=== PATIENT | male | born 1975 | race Caucasian/White ===

== ENCOUNTER 2020-06-29 20:20 | Inpatient (IN) | payer MEDICAID, SELFPAY ==
[~2020-06-29] VITALS: Ht 180.3 cm; Wt 61.0 kg
[2020-06-29] MEDS ORDERED: LORazepam 2 MG/ML, 1ML IVPush ONE (20:30)
[2020-06-29] MEDS: PLEASE ENTER ALLERGIES MC SCH ×2 (20:30→20:43)
[2020-06-29] MEDS ORDERED: SODIUM CHLORIDE 0.9% 1,000ML IVBOLUS ONE ×2 (20:30→21:30)
--- NOTE | 2020-06-29 20:30 | NUR ---
PATIENT ARRIVING RESTLESS, FIDGETY AND ANXIOUS. UNABLE TO STAY STILL FOR MORE THAN BRIEF MOMENTS. REDIRECTED AND CUES USED VERY FREQUENTLY. PATIENT REPEATS REQUEST FOR WATER. DR. TOBIAS TO BEDSIDE TO EVALUATE PATIENT. PATIENT STATES HE JUST WENT THROUGH A BREAKUP AND HIS EX-BOYFRIEND SENT SOMEONE TO BREAK HIS LEG AND HIS LEG HURTS WELL ETOH WITHDRAWLS AND CP. CALL VASQUEZ IN REACH. SAFETY MAINTAINED. WILL CONTINUE TO MONITOR. SEIZURE PADS APPLIED TO BILATERAL SIDE RAILS
[2020-06-29] MEDS ORDERED: LORazepam 2 MG/ML, 1ML ONE (20:38)
[2020-06-29 21:07] LABS: PH, VENOUS 7.302 pH (7.320-7.420)
--- NOTE | 2020-06-29 21:10 | NUR ---
DR. TOBIAS NOTIFIED OF POC BLOOD SUGAR TAKEN AND RESULTED "HI"
[2020-06-29 21:15] LABS: BASOPHILS % (AUTO) 0 % (0-1); EOSINOPHILS % (AUTO) 0 % (1-7); LYMPHOCYTES % (AUTO) 15 % (22-44); MEAN CORPUSCULAR HEMOGLOBIN 28.5 pg (27.5-34.5); MEAN CORPUSCULAR HGB CONC 32.1 g/dL (33.2-36.2); MEAN PLATELET VOLUME 8.4 fL (7.4-10.4); MONOCYTES % (AUTO) 9 % (2-9); NEUTROPHILS % (AUTO) 76 % (42-75); PLATELET COUNT 280 x10^3/uL (130-400); RED BLOOD COUNT 3.99 x10^6/uL (4.38-5.82)
[2020-06-29 21:18] LABS: MD NO
[2020-06-29 21:20] LABS: ALANINE AMINOTRANSFERASE 61 U/L (12-78); ALBUMIN 2.8 g/dL (3.4-5.0); ANION GAP 14 mmol/L (5-15); CALCIUM 7.7 mg/dL (8.5-10.1); CHLORIDE 96 mmol/L (98-107); CREATININE 1.11 mg/dL (0.7-1.3)
[2020-06-29 21:24] LABS: ACETONE, SERUM Trace (Negative); ALKALINE PHOSPHATASE 418 U/L (45-117); BILIRUBIN,TOTAL 0.3 mg/dL (0.2-1.0); TOTAL PROTEIN 6.9 g/dL (6.4-8.2); TROPONIN I < 0.015 ng/mL (0.000-0.045)
[2020-06-29] MEDS ORDERED: METH10TA3 PO (21:31)
--- NOTE | 2020-06-29 21:43 | NUR ---
PATIENT STANDING UP ON SIDE OF BED TO USE URINAL. UNSTEADY STANDING. RN STAYED AT BEDSIDE TO ENSURE NO FALLS.
[2020-06-29 22:03] LABS: MICROSCOPIC NOT IND
[2020-06-29 22:14] LABS: AMPHETAMINE SCREEN, URINE Negative (Negative); BARBITURATE SCREEN, URINE Negative (Negative); BENZODIAZEPINE SCREEN, URINE Negative (Negative); CANNABINOID SCREEN, URINE Positive (Negative); COCAINE SCREEN, URINE Negative (Negative); METHADONE SCREEN, URINE Positive (Negative); OPIATE SCREEN, URINE Negative (Negative)
--- NOTE | 2020-06-29 22:32 | NUR ---
PAIENT RESTING IN BED INTERMITTENTLY SLEEPING. IVF FINISHED AND BS RECHECKED = 400. PATIENT WOKE UP AND STATED "IM STILL PRETTY ANXIOUS". DRIFTED BACK TO SLEEP WITH EYES CLOSED. VS REMAIN STABLE ON 2L VIA NC. FOUND NC OFF PATIENT AND HE WS 90-91% ON RA. THIS WAS REAPPLIED
--- NOTE | 2020-06-29 22:47 | NUR ---
BANANA BAG REQUESTED FROM PHARMACY
--- NOTE | 2020-06-29 22:52 | NUR ---
DISCUSSION WITH DR. NAIDU; HE IS SUGGESTING PATIENT IS NOT NEEDING ICU AT THIS TIME. HE WILL PLACE ORDERS FOR SUCH. I NOTIFIED HIM OF SIGNIFICANT DROP IN BS AND CIWA SCALE ASSESSMENTS.
[2020-06-29] MEDS ORDERED: MAGNESIUM SULFATE 1 GM, THIAMINE 100 MG, FOLIC ACID 1 MG in SODIUM CHLORIDE 0.9% 1,000 ML IV ONE (23:00)
[2020-06-29] MEDS ORDERED: LORazepam 1MG TABLET PO PRN ×2 (23:30)
[2020-06-29] MEDS ORDERED: DEXTROSE 4 GM TAB.CHEW PO PRN (23:30)
[2020-06-29] MEDS ORDERED: PROMETHAZINE 25 MG/ML, 1ML IM PRN (23:30)
[2020-06-29] MEDS: ENOXAPARIN 40 MG/0.4 ML SQ SCH (23:30)
[2020-06-29] MEDS ORDERED: LORazepam 2 MG/ML, 1ML IV PRN ×5 (23:30)
[2020-06-29] MEDS ORDERED: ONDANSETRON ODT 4 MG PO PRN (23:30)
[2020-06-29] MEDS ORDERED: LORazepam 0.5MG TABLET PO PRN (23:30)
[2020-06-29] MEDS ORDERED: DOCUSATE 100 MG CAPSULE PO PRN (23:30)
[2020-06-29] MEDS ORDERED: ONDANSETRON 2MG/ML, 2ML IVPush PRN (23:30)
[2020-06-29] MEDS ORDERED: POLYETHYLENE GLYCOL 17 GM PACKET PO PRN (23:30)
[2020-06-29] MEDS ORDERED: METOCLOPRAMIDE 5 MG/ML, 2ML IVPush PRN (23:30)
[2020-06-29] MEDS ORDERED: METOCLOPRAMIDE 5 MG/ML, 2ML IVPush ONE (23:30)
[2020-06-29] MEDS ORDERED: BISACODYL 10 MG SUPP PR PRN (23:30)
[2020-06-29] MEDS ORDERED: GLUCAGON 1 MG IM PRN (23:30)
[2020-06-29] MEDS ORDERED: DEXTROSE 50%, 50ML SYRINGE IVPush PRN (23:30)
[2020-06-29] MEDS: SODIUM CHLORIDE 0.9% 1,000 ML IV SCH (23:30)
[2020-06-29] MEDS ORDERED: hydrALAzine 20 MG/ML, 1ML IVPush PRN (23:30)
--- NOTE | 2020-06-29 23:30 | NUR ---
REPORT GIVEN TO SEAMUS GRAVES ON TELE
[2020-06-29] MEDS ORDERED: INSU200I SQ-INSULIN (23:59)
[2020-06-29] MEDS ORDERED: INSU100I34 SQ-INSULIN (23:59)
[2020-06-30] MEDS: INSULIN LISPRO 100 UNITS/ML, PEN SQ-INSULIN SCH ×6 (00:24→21:50)
[2020-06-30] MEDS: INSULIN GLARGINE 100 UNITS/ML, PEN SQ-INSULIN SCH ×4 (00:24→21:51)
[2020-06-30] MEDS: LORazepam 1MG TABLET PO PRN ×6 (00:25→21:51)
[2020-06-30 00:51] LABS: ANION GAP 6 mmol/L (5-15); CHLORIDE 104 mmol/L (98-107); CREATININE 0.74 mg/dL (0.7-1.3)
[2020-06-30 01:30] VITALS: BP 153/86
[2020-06-30 04:45] LABS: BASOPHILS % (AUTO) 1 % (0-1); EOSINOPHILS % (AUTO) 0 % (1-7); LYMPHOCYTES % (AUTO) 29 % (22-44); MEAN CORPUSCULAR HEMOGLOBIN 28.8 pg (27.5-34.5); MEAN CORPUSCULAR HGB CONC 33.3 g/dL (33.2-36.2); MONOCYTES % (AUTO) 7 % (2-9); NEUTROPHILS % (AUTO) 63 % (42-75); PLATELET COUNT 265 x10^3/uL (130-400); RED BLOOD COUNT 3.84 x10^6/uL (4.38-5.82); RED CELL DISTRIBUTION WIDTH 20.2 % (9.4-14.8)
[2020-06-30 04:46] LABS: MD NO
[2020-06-30 04:57] LABS: ALANINE AMINOTRANSFERASE 53 U/L (12-78); ALBUMIN 2.6 g/dL (3.4-5.0); ANION GAP 8 mmol/L (5-15); CALCIUM 7.7 mg/dL (8.5-10.1); CHLORIDE 102 mmol/L (98-107); CHOLESTEROL, TOTAL 131 mg/dL (140-239); CREATININE 0.64 mg/dL (0.7-1.3); TRIGLYCERIDES 45 mg/dL (50-200); VLDL CHOLESTEROL 9 mg/dL (0-25)
[2020-06-30 05:05] LABS: ALKALINE PHOSPHATASE 379 U/L (45-117); BILIRUBIN,TOTAL 0.6 mg/dL (0.2-1.0); CHOL/HDL RATIO 1.9; HDL CHOL % 53 % (26-37); HDL CHOLESTEROL (DIRECT) 70 mg/dL (40-60); LDL CHOLESTEROL,CALCULATED 52 mg/dL (54-169); LDL/HDL RATIO 0.7 (0.5-3.0); TOTAL PROTEIN 6.5 g/dL (6.4-8.2)
[2020-06-30 06:29] VITALS: BP 162/87
[2020-06-30] MEDS: SODIUM CHLORIDE 0.9% 1,000 ML IV SCH (08:24)
[2020-06-30] MEDS: MULTIVITAMINS/MINERALS TABLET PO SCH (08:34)
[2020-06-30] MEDS: SODIUM CHLORIDE FLUSH 10ML SYR IVF SCH ×2 (08:34→21:35)
[2020-06-30] MEDS: METHADONE INTENSOL 10 MG/ML ORAL CONC PO SCH (09:47)
[2020-06-30 11:30] VITALS: BP 142/74
[2020-06-30] MEDS: ACETAMINOPHEN 325 MG TABLET PO PRN (14:54)
[2020-06-30 18:54] VITALS: BP 147/88
[2020-06-30] MEDS: ENOXAPARIN 40 MG/0.4 ML SQ SCH (23:16)
[2020-07-01 00:21] VITALS: BP 160/83
[2020-07-01] MEDS: LORazepam 1MG TABLET PO PRN ×4 (02:20→21:43)
[2020-07-01 07:14] VITALS: BP 110/75
[2020-07-01] MEDS: INSULIN LISPRO 100 UNITS/ML, PEN SQ-INSULIN SCH ×4 (07:52→20:00)
[2020-07-01 08:57] LABS: BASOPHILS % (AUTO) 0 % (0-1); EOSINOPHILS % (AUTO) 0 % (1-7); LYMPHOCYTES % (AUTO) 11 % (22-44); MEAN CORPUSCULAR HEMOGLOBIN 28.6 pg (27.5-34.5); MEAN CORPUSCULAR HGB CONC 32.9 g/dL (33.2-36.2); MEAN PLATELET VOLUME 8.3 fL (7.4-10.4); MONOCYTES % (AUTO) 5 % (2-9); NEUTROPHILS % (AUTO) 84 % (42-75); PLATELET COUNT 235 x10^3/uL (130-400); RED BLOOD COUNT 4.27 x10^6/uL (4.38-5.82); RED CELL DISTRIBUTION WIDTH 20.1 % (9.4-14.8)
[2020-07-01] MEDS: SODIUM CHLORIDE FLUSH 10ML SYR IVF SCH ×2 (09:00→20:00)
[2020-07-01 09:05] LABS: ALBUMIN 2.7 g/dL (3.4-5.0); ANION GAP 6 mmol/L (5-15); CALCIUM 8.5 mg/dL (8.5-10.1); CHLORIDE 97 mmol/L (98-107)
[2020-07-01 09:09] LABS: ALANINE AMINOTRANSFERASE 49 U/L (12-78); ALKALINE PHOSPHATASE 351 U/L (45-117); BILIRUBIN,TOTAL 0.7 mg/dL (0.2-1.0); CREATININE 0.71 mg/dL (0.7-1.3); TOTAL PROTEIN 6.9 g/dL (6.4-8.2)
[2020-07-01 09:56] LABS: MD SCAN
[2020-07-01] MEDS: MULTIVITAMINS/MINERALS TABLET PO SCH (09:56)
[2020-07-01] MEDS: METHADONE INTENSOL 10 MG/ML ORAL CONC PO SCH (09:56)
[2020-07-01 12:17] VITALS: BP 118/75
[2020-07-01 19:06] VITALS: BP 153/80
[2020-07-01 19:29] VITALS: BP 159/90
[2020-07-01] MEDS: ACETAMINOPHEN 325 MG TABLET PO PRN (19:57)
[2020-07-01] MEDS: INSULIN GLARGINE 100 UNITS/ML, PEN SQ-INSULIN SCH (20:01)
[2020-07-01] MEDS: ENOXAPARIN 40 MG/0.4 ML SQ SCH (23:30)
[2020-07-01] MEDS ORDERED: CEFTRIAXONE PMX 1GM/50ML 50 ML IV SCH (23:30)
[2020-07-02] MEDS ORDERED: AZITHROMYCIN 500 MG in SODIUM CHLORIDE 0.9% 250 ML IV SCH
[2020-07-02] MEDS: LORazepam 1MG TABLET PO PRN ×2 (00:16→05:13)
[2020-07-02 00:55] VITALS: BP 138/80
[2020-07-02 06:44] VITALS: BP 152/84
[2020-07-02] MEDS: INSULIN LISPRO 100 UNITS/ML, PEN SQ-INSULIN SCH ×2 (07:31→11:32)
[2020-07-02] MEDS ORDERED: DOXYCYCLINE 100 MG in DEXTROSE 5% 250 ML IV SCH (08:00)
[2020-07-02] MEDS: SODIUM CHLORIDE FLUSH 10ML SYR IVF SCH (09:00)
[2020-07-02] MEDS: METHADONE INTENSOL 10 MG/ML ORAL CONC PO SCH (10:31)
[2020-07-02] MEDS: MULTIVITAMINS/MINERALS TABLET PO SCH (10:31)
[2020-07-02] MEDS ORDERED: AMPICILLIN/SULBACTAM 3 GM in SODIUM CHLORIDE 0.9% 100 ML IV SCH (12:00)
== END 2020-07-02 12:06 | disposition left against medical advice (07) | DRG 637 ==
LOC: ED 22:52 → EDIP 23:02 → 4WST 06-30
PROVIDERS: ADMIT Internal Medicine; ATTEND Family Medicine
DX: E10.65 Type 1 diabetes mellitus with hyperglycemia (principal); J18.1 Lobar pneumonia, unspecified organism; E10.649 Type 1 diabetes mellitus with hypoglycemia without coma; E86.0 Dehydration; F12.10 Cannabis abuse, uncomplicated; F41.9 Anxiety disorder, unspecified; Z53.29 Procedure and treatment not carried out because of patient's decision for other reasons; Y90.6 Blood alcohol level of 120-199 mg/100 ml; I25.10 Atherosclerotic heart disease of native coronary artery without angina pectoris; I25.2 Old myocardial infarction; Z79.4 Long term (current) use of insulin; Z95.1 Presence of aortocoronary bypass graft; Z95.2 Presence of prosthetic heart valve; Z95.5 Presence of coronary angioplasty implant and graft; Z88.8 Allergy status to other drugs, medicaments and biological substances; Z79.899 Other long term (current) drug therapy
CPT/HCPCS: 36415; 71045; 80048; 80053; 80061; 80307; 80320; 81003; 82010; 82803; 82962; 83036; 83735; 83930; 84100; 84443; 84484; 85025; 87040; 93005; 96361; 96374; 99285; G0378; J0456; J0696; J1650; J3411; J3475; J7060; G0480; J1815; J2060; J2765; J7030; J7050

== ENCOUNTER 2020-07-03 10:55 | Emergency (ER) | payer MEDICAID ==
[~2020-07-03] VITALS: Ht 180.3 cm; Wt 59.0 kg
[~2020-07-03 10:55] MED LIST: INSU100I34 SQ-INSULIN; INSU200I SQ-INSULIN; METH10TA3 PO
--- NOTE | 2020-07-03 11:14 | NUR ---
PT W/C'D TO ROOM 3 W/ C/O CP STARTED 10 DAYS AGO WORSENED TODAY. PT STATES HE IS ALSO HAVING C/O L ARM PAIN W/ ASSOCIATED N/V. PT STATES CP 01/28. PT STATES PAIN HAS WORSENED THIS AM. PT ALSO STATES HE IS GOING THROUGH POSSIBLE METHADONE WITHDRAWAL. HX HEART MURMUR. MONITORS APPLIED. NADN. BRIE TOVAR AT BEDSIDE.
[2020-07-03] MEDS ORDERED: SODIUM CHLORIDE FLUSH 10ML SYR IVF ONE (11:30)
[2020-07-03] MEDS ORDERED: ONDANSETRON 2MG/ML, 2ML IVPush ONE ×2 (11:30→14:30)
[2020-07-03] MEDS ORDERED: LORazepam 2 MG/ML, 1ML IVPush ONE ×2 (11:30→14:30)
[2020-07-03] MEDS ORDERED: ASPIRIN 81 MG TABLET CHEW PO ONE (11:30)
[2020-07-03 11:45] LABS: BASOPHILS % (AUTO) 0 % (0-1); EOSINOPHILS % (AUTO) 0 % (1-7); LYMPHOCYTES % (AUTO) 8 % (22-44); MEAN CORPUSCULAR HEMOGLOBIN 28.7 pg (27.5-34.5); MEAN CORPUSCULAR HGB CONC 32.4 g/dL (33.2-36.2); MEAN PLATELET VOLUME 8.1 fL (7.4-10.4); MONOCYTES % (AUTO) 7 % (2-9); NEUTROPHILS % (AUTO) 85 % (42-75); PLATELET COUNT 192 x10^3/uL (130-400); RED BLOOD COUNT 3.89 x10^6/uL (4.38-5.82); RED CELL DISTRIBUTION WIDTH 19.7 % (9.4-14.8)
[2020-07-03 11:54] LABS: MD NO
[2020-07-03 11:57] LABS: ALANINE AMINOTRANSFERASE 50 U/L (12-78); ALBUMIN 2.7 g/dL (3.4-5.0); ANION GAP 13 mmol/L (5-15); CALCIUM 8.3 mg/dL (8.5-10.1); CHLORIDE 97 mmol/L (98-107); CREATININE 0.84 mg/dL (0.7-1.3)
[2020-07-03 12:02] LABS: ALKALINE PHOSPHATASE 357 U/L (45-117); BILIRUBIN,TOTAL 0.7 mg/dL (0.2-1.0); TOTAL PROTEIN 6.9 g/dL (6.4-8.2); TROPONIN I < 0.015 ng/mL (0.000-0.045)
[2020-07-03] MEDS ORDERED: ASPIRIN 81 MG TABLET CHEW ONE (12:05)
[2020-07-03] MEDS ORDERED: ONDANSETRON 2MG/ML, 2ML ONE ×2 (12:06→14:39)
[2020-07-03] MEDS ORDERED: LORazepam 2 MG/ML, 1ML ONE ×2 (12:06→14:40)
[2020-07-03] MEDS ORDERED: INSULIN SINGLE DOSE, ER ONE (12:09)
[2020-07-03] MEDS ORDERED: INSULIN REGULAR 100 UNITS/ML, 3ML VIAL SQ-INSULIN ONE (12:30)
[2020-07-03] MEDS ORDERED: SODIUM CHLORIDE 0.9% 1,000ML IVBOLUS ONE (12:30)
[2020-07-03] MEDS ORDERED: INSULIN REGULAR 100 UNITS/ML, 3ML VIAL IVPush ONE (12:30)
--- NOTE | 2020-07-03 12:30 | NUR ---
PT RESTING ON GURNEY. NADN. MIRZA.
[2020-07-03 12:32] LABS: FIO2 ROOM AIR %; PH, VENOUS 7.353 pH (7.320-7.420)
[2020-07-03 12:40] LABS: ACETONE, SERUM Large (80mg/dL) (Negative)
--- NOTE | 2020-07-03 13:31 | NUR ---
PT BS 319 AFTER 1L NS AND IV INSULIN ADMIN. BRIE TOVAR NOTIFIED. PT CHART REVIEWED AND PLACED FOR RECHECK.
--- NOTE | 2020-07-03 14:31 | NUR ---
PT RESTING ON GURNEY. NADN. MIRZA.
--- NOTE | 2020-07-03 15:07 | NUR ---
PT REQUESTING A DOSE OF METHADONE BEFORE LEAVING ED. SPOKE W/ BRIE TOVAR. REPORT GIVEN TO ELY CARTWRIGHT.
--- NOTE | 2020-07-03 15:10 | NUR ---
REPORT RECIEVED FROM KELLY GRAVES. PER BRIE TOVAR NO METHADONE AT THIS TIME. PT GIVEN DC INSTRUCTIONS AND SCRIPT FOR ZOFRAN, ALL QUESTIONS ANSWERED. PT AMBULATORY TO DC DESK WITH STEADY GAIT.
[2020-07-03 15:23] VITALS: BP 148/80
== END 2020-07-03 15:25 | disposition home or self-care (01) ==
LOC: ED 11:47
DX: F10.239 Alcohol dependence with withdrawal, unspecified (principal); E11.65 Type 2 diabetes mellitus with hyperglycemia; I45.10 Unspecified right bundle-branch block; I44.5 Left posterior fascicular block; R00.2 Palpitations; I25.2 Old myocardial infarction; Z95.4 Presence of other heart-valve replacement; Y90.9 Presence of alcohol in blood, level not specified
CPT/HCPCS: 36415; 71045; 80053; 82010; 82803; 82962; 84484; 85025; 93005; 96361; 96374; 96375; 96376; 99285; J1815; J2060; J2405; J7030

== ENCOUNTER 2020-07-05 07:21 | Emergency (ER) | payer MEDICAID, SELFPAY ==
[~2020-07-05] VITALS: Ht 172.7 cm; Wt 72.0 kg
[2020-07-05] MEDS ORDERED: SODIUM CHLORIDE FLUSH 10ML SYR IVF ONE (08:00)
[2020-07-05] MEDS ORDERED: SODIUM CHLORIDE 0.9% 1,000ML IVBOLUS ONE (08:00)
[2020-07-05] MEDS ORDERED: LORazepam 2 MG/ML, 1ML IVPush ONE ×2 (08:00→09:30)
[2020-07-05] MEDS ORDERED: SODIUM CHLORIDE 0.9% 1,000 ML IV ONE (08:00)
[2020-07-05] MEDS ORDERED: LORazepam 2 MG/ML, 1ML ONE ×2 (08:09→09:26)
[2020-07-05 08:14] LABS: PH, VENOUS 7.352 pH (7.320-7.420)
[2020-07-05 08:15] LABS: FIO2 ROOM AIR %
[2020-07-05 08:17] LABS: BASOPHILS % (AUTO) 1 % (0-1); EOSINOPHILS % (AUTO) 1 % (1-7); LYMPHOCYTES % (AUTO) 24 % (22-44); MEAN CORPUSCULAR HGB CONC 32.9 g/dL (33.2-36.2); MEAN PLATELET VOLUME 8.4 fL (7.4-10.4); MONOCYTES % (AUTO) 8 % (2-9); NEUTROPHILS % (AUTO) 66 % (42-75); PLATELET COUNT 212 x10^3/uL (130-400); RED BLOOD COUNT 4.36 x10^6/uL (4.38-5.82); RED CELL DISTRIBUTION WIDTH 20.3 % (9.4-14.8)
[2020-07-05 08:27] LABS: ALANINE AMINOTRANSFERASE 44 U/L (12-78); ALBUMIN 2.7 g/dL (3.4-5.0); ANION GAP 8 mmol/L (5-15); CALCIUM 7.8 mg/dL (8.5-10.1); CHLORIDE 100 mmol/L (98-107); CREATININE 0.77 mg/dL (0.7-1.3)
[2020-07-05 08:29] LABS: ALKALINE PHOSPHATASE 344 U/L (45-117); BILIRUBIN,TOTAL 0.3 mg/dL (0.2-1.0); TOTAL PROTEIN 7.2 g/dL (6.4-8.2)
[2020-07-05] MEDS ORDERED: PLEASE ENTER ALLERGIES MC SCH (08:30)
[2020-07-05 08:38] LABS: MD SCAN
[2020-07-05 09:05] LABS: ACETONE, SERUM Trace (Negative)
--- NOTE | 2020-07-05 09:20 | NUR ---
Pt here for ETOH and methadone withdrawal. Yelling out, stating "everything hurts". Provided with Ativan, pt states no relief. Pt found sitting at edge of bed with one leg through bed rail. Pt pulled PIV, fluids running on floor, incontinant of urine. Pt cleaned, placed on new linens, new PIV initiated. Fluids restarted. Pt educated on using call light. Sitter at bedside.
[2020-07-05 09:24] VITALS: BP 159/70
[2020-07-05] MEDS ORDERED: INSULIN SINGLE DOSE, ER ONE (09:27)
[2020-07-05] MEDS ORDERED: INSULIN REGULAR 100 UNITS/ML, 3ML VIAL SQ-INSULIN ONE (09:30)
--- NOTE | 2020-07-05 09:36 | NUR ---
Pt continues to yell despite requests not to do so. Medicated with additional Ativan and insulin per order.
--- NOTE | 2020-07-05 10:03 | NUR ---
Pt wanting to AMA, ERP aware. Per Dr Freeman, pt is medically cleared to go, however still too unsteady on his feet. Sitter remains at bedside. Proveided with snacks. Diet tray ordered.
--- NOTE | 2020-07-05 11:34 | NUR ---
Pt steady enough on feet to leave AMA. AMA signed.
== END 2020-07-05 11:37 | disposition home or self-care (01) ==
LOC: MERGE 07:21 → ED 10:16
DX: F11.222 Opioid dependence with intoxication with perceptual disturbance (principal); R41.82 Altered mental status, unspecified; M25.569 Pain in unspecified knee; E11.9 Type 2 diabetes mellitus without complications; Z21 Asymptomatic human immunodeficiency virus [HIV] infection status; Z88.8 Allergy status to other drugs, medicaments and biological substances
CPT/HCPCS: 36415; 80053; 80320; 82010; 82803; 85025; 96361; 96374; 96376; 99284; J1815; J2060; J7030; G0480

== ENCOUNTER 2020-08-04 17:13 | Emergency (ER) | payer MEDICAID ==
[~2020-08-04] VITALS: Ht 180.3 cm; Wt 60.0 kg
--- NOTE | 2020-08-04 17:18 | NUR ---
PT BROUGHTH IN BY [facility] FROM [facility] (PAST 3 WEEKS) FOR CHIEF COMPLAINT OF SUDDEN CP WITH LT ARM NUMBNESS, SOB, AND PALPITATIONS STARTING 4 HRS AGO. PT REPORTS RECENTLY HAD METHADONE DOSE DECREASED 150 MG TO 60 MG.
--- NOTE | 2020-08-04 17:28 | NUR ---
PT REPORT FROM MAURILIO BARNES RN. PT CARE TO BE ASSUMED. XR AT BS.
--- NOTE | 2020-08-04 17:28 | NUR ---
REPORT TO JANES GRAVES
[2020-08-04] MEDS ORDERED: SODIUM CHLORIDE FLUSH 10ML SYR IVF ONE (17:30)
--- NOTE | 2020-08-04 17:34 | NUR ---
DR NOLASCO AT
--- NOTE | 2020-08-04 17:40 | NUR ---
SITTING QUIETLY ON [address]
[2020-08-04 17:59] LABS: BASOPHILS % (AUTO) 1 % (0-1); EOSINOPHILS % (AUTO) 0 % (1-7); LYMPHOCYTES % (AUTO) 28 % (22-44); MEAN CORPUSCULAR HEMOGLOBIN 28.2 pg (27.5-34.5); MEAN CORPUSCULAR HGB CONC 32.6 g/dL (33.2-36.2); MEAN PLATELET VOLUME 8.3 fL (7.4-10.4); MONOCYTES % (AUTO) 9 % (2-9); NEUTROPHILS % (AUTO) 62 % (42-75); PLATELET COUNT 221 x10^3/uL (130-400); RED BLOOD COUNT 4.18 x10^6/uL (4.38-5.82); RED CELL DISTRIBUTION WIDTH 17.4 % (9.4-14.8)
[2020-08-04 18:00] LABS: MD NO
[2020-08-04 18:08] LABS: ALANINE AMINOTRANSFERASE 48 U/L (12-78); ALBUMIN 3.4 g/dL (3.4-5.0); ANION GAP 8 mmol/L (5-15); CALCIUM 8.4 mg/dL (8.5-10.1); CHLORIDE 100 mmol/L (98-107); CREATININE 1.02 mg/dL (0.7-1.3)
[2020-08-04 18:13] LABS: ALKALINE PHOSPHATASE 173 U/L (45-117); BILIRUBIN,TOTAL 0.3 mg/dL (0.2-1.0); TOTAL PROTEIN 7.2 g/dL (6.4-8.2); TROPONIN I < 0.015 ng/mL (0.000-0.045)
[2020-08-04] MEDS ORDERED: HYDROcodone/APAP 10/325 MG TABLET PO ONE (18:30)
[2020-08-04] MEDS ORDERED: HYDROcodone/APAP 10/325 MG TABLET ONE (18:33)
[2020-08-04 18:44] VITALS: BP 149/85
== END 2020-08-04 19:08 | disposition home or self-care (01) ==
LOC: ED 18:18
DX: R07.2 Precordial pain (principal); I25.2 Old myocardial infarction; I45.2 Bifascicular block; R07.89 Other chest pain; E11.9 Type 2 diabetes mellitus without complications
CPT/HCPCS: 36415; 71045; 80053; 80320; 83880; 84484; 85025; 93005; 99285; G0480